=== PATIENT | female | born 1940 | race Caucasian/White ===

== ENCOUNTER 2018-06-12 10:57 | Emergency (ER) | payer OTHER ==
[~2018-06-12] VITALS: Ht 152.4 cm; Wt 69.9 kg
[~2018-06-12 10:57] MED LIST: ACET1TAB49; BUSP5TAB; CALC0.255; DEXL60CA4; FLUOXETINA; PANT40TA3; RANOLAZINE; SERT50TA6; TRAM50TA; ZOLP10TA; [UNRECOGNIZED DRUG - OTHER]; [UNRECOGNIZED DRUG - OTHER]
[2018-06-12 11:49] VITALS: BP 186/67; PULSE 83; RESP 18; Ht 152.4 cm; Wt 69.9 kg
--- NOTE | 2018-06-12 12:04 | ERD ---
ER Documentation Chief Complaint Chief Complaint C/O BACK, NECK PAIN, H/A, SORE THROAT, BODY ACHE FOR A WEEK. HPI 77-year-old female, with history of depression, presents to the emergency d epartment, complaining of 1 week with generalized body aches including back and neck pain. The pain is 5/10. The patient has been taking Tylenol for pain. She denies fevers, no chills, no shortness of breath. ROS All systems reviewed and are negative except as per history of present illness. Medications Home Meds Active Scripts Acetaminophen* (Tylenol*) 325 Mg Tablet, 2 TAB PO Q6 PRN for PAIN AND OR ELEVATED TEMP, #20 TAB Prov:GABRIEL POWELL MD 06/12/18 Sulfamethoxazole/Trimethoprim* (Bactrim Ds* Tablet) 1 Each Tablet, 1 TAB PO BID for 5 Days, #10 TAB Prov:GABRIEL POWELL MD 06/12/18 Reported Medications [Verapamilo] 80 MG No Conflict Check 07/16/12 Calcitriol* (Rocaltrol*) 0.25 Mcg Capsule 07/16/12 [Fluoxetina] 20 MG No Conflict Check 07/16/12 [Ranolazine] 500 MG No Conflict Check 07/16/12 Dexlansoprazole (KAPIDEX) 60 Mg Cap. 07/16/12 Tramadol Hcl* (Ultram*) 50 Mg Tablet 07/18/10 Calcium/Vitamin D (Dical-D) 1 Tab Tab 06/23/09 Acetaminophen/Phenyltolx Cit (Asa Free Analgesic Tablet) 1 Tab Tablet 06/23/09 Pantoprazole* (Protonix*) 40 Mg Tablet. 06/23/09 Sertraline Hcl* (Sertraline Hcl*) 50 Mg Tablet 06/23/09 Buspirone Hcl (Buspirone Hcl) 5 Mg Tablet 06/23/09 Zolpidem Tartrate* (Ambien*) 10 Mg Tablet 06/23/09 Allergies Allergies: Coded Allergies: hydrocodone (Verified Allergy, Mild, BURNING FEELING, 06/12/18) morphine (Verified Allergy, Mild, VOMITING, 06/12/18) tramadol (Verified Allergy, Unknown, 06/12/18) BODY SWELLING PMhx/Soc History of Surgery: No Anesthesia Reaction: No Hx Neurological Disorder: Yes (depression, anxiety) Hx Respiratory Disorders: No Hx Cardiac Disorders: Yes (HTN, CAD) Hx Psychiatric Problems: No Hx Alcohol Use: No Hx Substance Use: No Hx Tobacco Use: No FmHx Family History: No diabetes, No coronary disease Physical Exam Vitals Vital Signs Date Temp Pulse Resp B/P (MAP) Pulse Ox O2 O2 Flow FiO2 Time Delivery Rate 06/12/18 98.6 83 18 186/67 95 11:49 (106) Physical Exam Const: No acute distress Head: Atraumatic Eyes: Normal Conjunctiva ENT: Normal External Ears, Nose and Mouth. Neck: Full range of motion. No meningismus. Resp: Clear to auscultation bilaterally Cardio: Regular rate and rhythm, no murmurs Abd: Soft, non tender, non distended. Normal bowel sounds Skin: No petechiae or rashes Back: No midline or flank tenderness Ext: No cyanosis, or edema Neur: Awake and alert Psych: Normal Mood and Affect Results 24 hrs Laboratory Tests Test 06/12/18 12:45 Urine Color YELLOW Urine Clarity SLIGHTLY CLOUDY Urine pH 7.0 Urine Specific Mckenzie 1.023 Urine Ketones NEGATIVE mg/dL Urine Nitrite NEGATIVE mg/dL Urine Bilirubin NEGATIVE mg/dL Urine Urobilinogen 1+ mg/dL Urine Leukocyte Esterase 1+ Zachary/ul Urine Microscopic RBC 3 /HPF Urine Microscopic WBC 36 /HPF Urine Squamous Epithelial Cells MODERATE /HPF Urine Bacteria FEW /HPF Urine Hemoglobin NEGATIVE mg/dL Urine Glucose NEGATIVE mg/dL Urine Total Protein 2+ mg/dl Current Medications Medications Dose Sig/Kendall Start Time Status Last (Trade) Ordered Route PRN Stop Time Admin Dose Reason Admin Ketorolac 15 mg ONCE STAT 06/12/18 DC 06/12/18 Tromethamine IM 12:29 12:54 (Toradol) 06/12/18 12:32 Procedures/MDM Vital signs stable. Differential diagnosis considered include osteoarthritis, rheumatoid arthritis, reactive arthritis, lupus, thyroid disease. Low suspicion for septic arthritis. During the ED course the patient remained stable, no new complaints. The patient received treatment with Toradol presenting overall improvement of the symptoms. The patient was also found to have a urinary tract infection, no signs of urosepsis or pyelonephritis. Results and clinical impression discussed with the patient who agrees with management. The patient is stable to be treated outpatient and will be discharged home with a Rx for Bactrim and Tylenol, some side effects of prescribed medications (headache, rash, nausea, vomiting, diarrhea, drowsiness, habituation, bleeding, hypertension, interactions with other medications) were reviewed. The patient was informed that the evaluation in the emergency department has been done to rule out an acute emergency, therefore, chronic conditions like malignancy or other diseases have not been evaluated; therefore, the patient was instructed to follow up with the primary care provider in the next 48h. If symptoms persist, worsen or new symptoms develop, then patient should return to the ED immediately. Instructions explained and given directly by me to the patient with acknowledgment and demonstrated understanding. Disclaimer: Inadvertent spelling and grammatical errors are likely due to EHR/dictation software use and do not reflect on the overall quality of patient care. Also, please note that the electronic time recorded on this note does not necessarily reflect the actual time of the patient encounter. Departure Diagnosis: Primary Impression: Arthralgia Additional Impression: UTI (urinary tract infection) Condition: Stable Additional Instructions: Muchas shakir por [facility] para [facility] servicio. Esperamos que en [place] visita a la yaya de emergencia rosenberg problema medico haya sido solucionado y que se sienta mucho mejor. Para estar seguros que rosenberg mejoria sigue en proceso, le pedimos el favor de hacer esthela angie de seguimiento medico con [place] doctor primario en los proximos 2-4 cohen. Lleve con usted estos documentos y las medicinas recetadas. Si adiel sintomas empeoran, NO SE ESPERE, por favor regrese a yaya de emergencia INMEDIATAMENTE. En harpal que usted no tenga un mdico de atencin primaria: Llame al mdico o clnica comunitaria de referencia que aparece abajo lidya las horas de consultorio para hacer sethela angie para que le vean. CLINICAS: [facility] [phone] [id number] [facility] 915 [phone] [id number] [facility] [phone] [id number] [facility] [phone] [id number] [place] [id number] [phone] [facility]. [phone] GABRIEL MANUEL MD Jun 12, 2018 12:04
[2018-06-12] MEDS ORDERED: KETOROLAC 15 MG INJ IM STA (12:29)
[2018-06-12] MEDS ORDERED: SULF1TAB31 PO (13:15)
[2018-06-12] MEDS ORDERED: ACET325T33 PO (13:15)
== END 2018-06-12 13:29 | disposition home or self-care (01) ==
LOC: FTE 10:57
DX: M54.2 Cervicalgia (principal); N39.0 Urinary tract infection, site not specified
CPT/HCPCS: 81001; 96372; 99284; J1885